=== PATIENT | female | born 2000 | race Two or more races ===

== ENCOUNTER 2020-02-08 04:48 | Inpatient (IN) | payer BC, MEDICAID, OTHER ==
[~2020-02-08] VITALS: Ht 149.9 cm; Wt 71.7 kg
[2020-02-08] MEDS ORDERED: ACETAMINOPHEN 325 MG TABLET. PO PRN ×3 (05:00→06:30)
[2020-02-08] MEDS ORDERED: IV RINGERS,LACTATED 1000ML 1,000 ML IV PRN ×2 (05:00→05:30)
[2020-02-08] MEDS ORDERED: MAG HYDROX/ALUMINUM HYD/SIMETH 30 ML ORAL.SUSP PO PRN ×2 (05:00→06:30)
[2020-02-08 05:18] LABS: BILIRUBIN,URINE NEGATIVE (NEG); CLARITY,URINE CLEAR; COLOR,URINE YELLOW; NITRITE,URINE NEGATIVE (NEG); PH,URINE 6.5 (<5.0-8.0); PROTEIN,URINE NEGATIVE (NEG-TRACE); UROBILINOGEN,URINE 0.2 mg/dL (0.2 mg/dL)
[2020-02-08 05:23] LABS: BACTERIA,URINE MANY /HPF (0-FEW); BARBITURATES NEG (NEG); BENZODIAZEPINES NEG (NEG); CANNABINOIDS NEG (NEG); COCAINE NEG (NEG); METHADONE NEG (NEG); OPIATES NEG (NEG); PHENCYCLIDINE NEG (NEG); RBC,URINE 0 /HPF (0-2); SQUAMOUS EPITHELIAL CELL,UR MANY /LPF
[2020-02-08] MEDS ORDERED: 0.9 % SODIUM CHLORIDE 10 ML DISP.SYRIN. IV PRN ×2 (05:30→06:30)
[2020-02-08] MEDS ORDERED: BUTORPHANOL 2 MG/ML VIAL. IVP PRN (05:30)
[2020-02-08] MEDS ORDERED: IBUPROFEN 400 MG TABLET. PO PRN (05:30)
[2020-02-08] MEDS ORDERED: LIDOCAINE 1% PF 30 ML VIAL. INJ PRN (05:30)
[2020-02-08] MEDS ORDERED: fentaNYL PF VIAL 100 MCG/2 ML VIAL IVP PRN (05:30)
[2020-02-08] MEDS ORDERED: ONDANSETRON PF 4 MG/2 ML VIAL. IVP PRN (05:30)
[2020-02-08] MEDS ORDERED: TERBUTALINE 1 MG/ML VIAL. SQ PRN (05:30)
[2020-02-08] MEDS ORDERED: OXYTOCIN 30 UNIT/500 ML PREMIX 500 ML IV PRN ×3 (05:30→06:30)
[2020-02-08 05:33] LABS: AMPHETAMINE/METHAMPHETAMINE NEG (NEG)
[2020-02-08] MEDS ORDERED: OXYTOCIN PREMIX 30 UNIT/500 ML NS BAG. IV ONE (06:00)
[2020-02-08 06:02] VITALS: BP 111/77
[2020-02-08 06:13] LABS: BASO # 0.1 x10^3/uL (0.0-0.2); BASO % 1 % (0-3); EOS # 0.1 x10^3/uL (0.0-0.7); EOS % 1 % (0-3); HEMATOCRIT 36.5 % (36.0-47.0); HEMOGLOBIN 12.1 g/dL (12.0-15.5); LYMPH # 3.7 x10^3/uL (1.0-4.8); LYMPH % 32 % (24-48); MEAN CORPUSCULAR HEMOGLOBIN 30 pg (25-35); MEAN CORPUSCULAR HGB CONC 33 g/dL (31-37); MEAN CORPUSCULAR VOLUME 92 fL (79-100); MONO # 0.7 x10^3/uL (0.0-1.1); MONO % 6 % (0-9); NEUT # 6.9 x10^3/uL (1.8-7.7); NEUT % 60 % (31-73); PLATELET COUNT 250 x10^3/uL (140-400); RED BLOOD COUNT 3.99 x10^6/uL (3.50-5.40); RED CELL DISTRIBUTION WIDTH 16.3 % (11.5-14.5); WHITE BLOOD COUNT 11.3 x10^3/uL (4.0-11.0)
[2020-02-08] MEDS ORDERED: PHENYLEPH/MINERAL OIL/PETROLAT RECTAL OINTMENT TUBE. RC PRN (06:30)
[2020-02-08] MEDS ORDERED: HYDROCORTISONE 1% TOPICAL OINTMENT 30GM TUBE. TP PRN (06:30)
[2020-02-08] MEDS ORDERED: MAGNESIUM HYDROXIDE 2,400 MG/30 ML ORAL.SUSP. PO PRN (06:30)
[2020-02-08] MEDS ORDERED: ZOLPIDEM 5 MG TABLET. PO PRN (06:30)
[2020-02-08] MEDS ORDERED: oxyCODONE/APAP 5/325 1 TAB TABLET PO PRN (06:30)
[2020-02-08] MEDS ORDERED: diphenhydrAMINE HCL 25 MG CAPSULE PO PRN (06:30)
[2020-02-08] MEDS ORDERED: BENZOCAINE 20% TOPICAL AEROSOL SPRAY 57GM CAN. TP PRN (06:30)
[2020-02-08] MEDS ORDERED: MMR per PROTOCOL. MC PRN (06:30)
[2020-02-08] MEDS ORDERED: SIMETHICONE 80 MG TAB.CHEW PO PRN (06:30)
[2020-02-08] MEDS ORDERED: TDaP (Adacel) per PROTOCOL. MC PRN (06:30)
[2020-02-08] MEDS ORDERED: DOCUSATE SODIUM 100 MG CAPSULE. PO PRN (06:30)
--- NOTE | 2020-02-08 06:56 | PDOC ---
VAGINAL DELIVERY DATE DATE: 02/08/20 TIME: 06:56 TIME The pt was placed in prophylactic [place] when pushing was initiated. The pts pushing was not well controlled. She at time would be lifting her bottom off the bed and scream with . The pt was moving so much that she pulled her IV out. Once the head was delivered the pt was not giving much maternal effort. Shortly after the head was delivered. After the delivery of the head the shoulders did not delivery. Suprapubic pressure was able to reduce the shoulder dystocia. Patient delivered a viable male infant over intact perineum at 0620. Wt 6lb 10oz. Apgars 8/9. Placenta delivered spontaneously, intact with 3VC. No lacerations noted. Good hemostasis noted. 20U of Pitocin given with IVFs. EBL 200cc. Cord ABG/VBG pending. WEIGHT Weight [ ] KAMALA BARBA MD Feb 08, 2020 06:56
--- NOTE | 2020-02-08 06:56 | PDOC1 ---
ELECTRICIAN UNDERGROUND H&P Date of Admission: Date of Admission: Feb 08, 2020 at 04:48 History of Present Illness: EDC: 03/08/20 LMP: 05/21/19 HPI: 19y @ 35.6 by 3rd trimester u/s presents to L&D with ctxs. The pt states that the cramping began around 3 am and within an hour the ctxs became more intense. She has been seen at since December. This is when her EDC was changed from 02/25/20 to 03/08/20. Prior to she was receiving care in [place]. PMH: Denies PSH: Denies Meds: PNV All: NKDA OBHx: TSVD x 1 SH: no tob, no EtOH FH: noncontributory Allergies: Coded Allergies: No Known Drug Allergies (Unverified , 02/08/20) Physical Exam: Vital Signs: Vital Signs Date Time Temp Pulse Resp B/P (MAP) Pulse Ox O2 Delivery O2 Flow Rate FiO2 02/08/20 06:02 97.7 130 20 111/77 (88) 95 Room Air 97.7 PE: GENERAL: No apparent distress. Alert and oriented. HEENT: Head normocephalic, atraumatic. NECK: Supple LUNGS: Clear to auscultation. HEART: RRR, S1, S2 present, pulses intact ABDOMEN: Soft, positive bowel sounds. EXTREMITIES: No cyanosis or edema. NEUROLOGIC: Normal speech, normal tone PSYCHIATRIC: Normal affect, normal mood. SKIN: No ulceration. FHT: 120s +acels/mild variable decels with ctxs/mLTV [place]: 2-3 min SVE: 8/C/0 Labs: Laboratory Tests Test 02/08/20 05:00 02/08/20 05:30 Urine Collection Type Unknown Urine Color Yellow Urine Clarity Clear Urine pH 6.5 (<5.0-8.0) Urine Specific [place] 1.015 (1.000-1.030) Urine Protein Negative mg/dL (NEG-TRACE) Urine Glucose (UA) Negative mg/dL (NEG) Urine Ketones (Stick) Negative mg/dL (NEG) Urine Blood Negative (NEG) Urine Nitrite Negative (NEG) Urine Bilirubin Negative (NEG) Urine Urobilinogen Dipstick 0.2 mg/dL (0.2 mg/dL) Urine Leukocyte Esterase Negative (NEG) Urine RBC 0 /HPF (0-2) Urine WBC 1-4 /HPF (0-4) Urine Squamous Epithelial Cells Many /LPF Urine Bacteria Many /HPF (0-FEW) Urine Mucus Marked /LPF Urine Opiates Screen Neg (NEG) Urine Methadone Screen Neg (NEG) Urine Barbiturates Neg (NEG) Urine Phencyclidine Screen Neg (NEG) Urine Amphetamine/Methamphetamine Neg (NEG) Urine Benzodiazepines Screen Neg (NEG) Urine Cocaine Screen Neg (NEG) Urine Cannabinoids Screen Neg (NEG) Urine Ethyl Alcohol Neg (NEG) White Blood Count 11.3 x10^3/uL (4.0-11.0) H Red Blood Count 3.99 x10^6/uL (3.50-5.40) Hemoglobin 12.1 g/dL (12.0-15.5) Hematocrit 36.5 % (36.0-47.0) Mean Corpuscular Volume 92 fL (79-100) Mean Corpuscular Hemoglobin 30 pg (25-35) Mean Corpuscular Hemoglobin Concent 33 g/dL (31-37) Red Cell Distribution Width 16.3 % (11.5-14.5) H Platelet Count 250 x10^3/uL (140-400) Neutrophils (%) (Auto) 60 % (31-73) Lymphocytes (%) (Auto) 32 % (24-48) Monocytes (%) (Auto) 6 % (0-9) Eosinophils (%) (Auto) 1 % (0-3) Basophils (%) (Auto) 1 % (0-3) Neutrophils # (Auto) 6.9 x10^3/uL (1.8-7.7) Lymphocytes # (Auto) 3.7 x10^3/uL (1.0-4.8) Monocytes # (Auto) 0.7 x10^3/uL (0.0-1.1) Eosinophils # (Auto) 0.1 x10^3/uL (0.0-0.7) Basophils # (Auto) 0.1 x10^3/uL (0.0-0.2) Laboratory Tests 02/08/20 05:30 Laboratory Tests 02/08/20 05:30 Assessment & Plan: A/P 19y @ 35.6 by 3rd trimester u/s 1.) Belarusian speaking 2.) labor questionable if pt actually term and only thought to be by late u/s, since greater 34wks will expectantly manage 3.) Will request records from [facility] 4.) A few elevated BP around delivery will monitor for trend 5.) Fetus cat I FHT, mec noted at time of SROM just prior to delivery 6.) GBS unk , delivered prior initiation of PCN KAMALA BARBA MD Feb 08, 2020 06:56
[2020-02-08] MEDS ORDERED: PRENATAL MULTIVITAMIN TABLET. PO SCH (09:00)
[2020-02-08 09:50] VITALS: BP 113/57
[2020-02-08 10:55] VITALS: BP 126/77
[2020-02-08 16:00] VITALS: BP 118/79
[2020-02-08] MEDS: IBUPROFEN 400 MG TABLET. PO PRN (17:02)
[2020-02-08 19:58] VITALS: BP 112/61
[2020-02-09 05:25] VITALS: BP 117/76
--- NOTE | 2020-02-09 06:00 | NUR ---
Patient passed a slightly larger than a golf ball sized clot. Uterus is firm with scant bleeding.
[2020-02-09] MEDS ORDERED: FERROUS SULFATE 325 MG TABLET. PO SCH (08:00)
[2020-02-09 08:17] LABS: HEMATOCRIT 32.3 % (36.0-47.0); HEMOGLOBIN 10.9 g/dL (12.0-15.5)
--- NOTE | 2020-02-09 09:34 | PDOC ---
DISTRICT SALES LEADER PROGRESS NOTE Subjective: Pt with good pain control. Mariusz PO. Voiding. Minimal lochia. Objective: Vital Signs: Vital Signs Date Time Temp Pulse Resp B/P (MAP) Pulse Ox O2 Delivery O2 Flow Rate FiO2 02/08/20 09:50 98.2 90 18 113/57 (75) 99 98.2 02/08/20 16:00 Room Air Vital Signs Date Time Temp Pulse Resp B/P (MAP) Pulse Ox O2 Delivery O2 Flow Rate FiO2 02/09/20 05:25 97.6 80 15 117/76 (90) 99 Room Air 97.6 Labs: Laboratory Tests Test 02/08/20 14:45 02/09/20 08:05 Hepatitis B Surface Antigen Nonreactive (Nonreactive) Hepatitis C IgG Antibody Nonreactive (Nonreactive) HIV (1&2) Antibody Screen Nonreactive (Nonreactive) Hemoglobin 10.9 g/dL (12.0-15.5) L Hematocrit 32.3 % (36.0-47.0) L Mean Corpuscular Hemoglobin Concent 34 g/dL (31-37) Laboratory Tests 02/09/20 08:05 Laboratory Tests 02/09/20 08:05 Physical Exam: GENERAL: No apparent distress. Alert and oriented. HEENT: Head normocephalic, atraumatic. NECK: Supple LUNGS: Clear to auscultation. HEART: RRR, S1, S2 present, pulses intact ABDOMEN: Soft, positive bowel sounds. EXTREMITIES: No cyanosis or edema. NEUROLOGIC: Normal speech, normal tone PSYCHIATRIC: Normal affect, normal mood. SKIN: No ulceration. FFNT below umb no C/C/E Assessment & Plan: A/P 19y s/p (at 35.6) 1.) Montenegrin speaking 2.) PP doing well 3.) Since records not recived from [facility], drop in labs obtained, wnl 4.) A few elevated BP around delivery all nml since 5.) Cont PP care KAMALA BARBA MD Feb 09, 2020 09:34
[2020-02-09 10:40] VITALS: BP 111/58
[2020-02-09] MEDS: IBUPROFEN 400 MG TABLET. PO PRN (17:34)
[2020-02-09 17:45] VITALS: BP 111/58
[2020-02-09 23:06] VITALS: BP 109/60
[2020-02-10 05:23] VITALS: BP 110/62
--- NOTE | 2020-02-10 08:31 | PDOC ---
OBIEE REPORT DEVELOPER PROGRESS NOTE Subjective: Pt with good pain control. Mariusz PO. Voiding. Minimal lochia Objective: Vital Signs: Vital Signs Date Time Temp Pulse Resp B/P (MAP) Pulse Ox O2 Delivery O2 Flow Rate FiO2 02/09/20 10:40 97.9 66 18 111/58 (75) 99 97.9 02/09/20 17:45 Room Air Vital Signs Date Time Temp Pulse Resp B/P (MAP) Pulse Ox O2 Delivery O2 Flow Rate FiO2 02/10/20 05:23 97.5 66 110/62 (78) 98 97.5 02/10/20 00:01 18 Room Air Physical Exam: GENERAL: No apparent distress. Alert and oriented. HEENT: Head normocephalic, atraumatic. NECK: Supple LUNGS: Clear to auscultation. HEART: RRR, S1, S2 present, pulses intact ABDOMEN: Soft, positive bowel sounds. EXTREMITIES: No cyanosis or edema. NEUROLOGIC: Normal speech, normal tone PSYCHIATRIC: Normal affect, normal mood. SKIN: No ulceration. FFNT below umb no C/C/E Assessment & Plan: A/P 19y PPD #2 s/p (at 35.6) 1.) Divehi speaking 2.) PP doing well 3.) Since records not received from [facility], drop in labs obtained, wnl 4.) A few elevated BP around delivery all nml since 5.) Hgb 12.1 -> 10.9 6.) Cont PP care KAMALA BARBA MD Feb 10, 2020 08:31
[2020-02-10] MEDS ORDERED: IBUP-1060 PO (08:35)
[2020-02-10] MEDS ORDERED: DOCU-109 PO (08:35)
[2020-02-10 12:15] VITALS: BP 107/68
--- NOTE | 2020-02-10 17:13 | DS ---
DATE OF DISCHARGE: 02/10/2020 ADMISSION DIAGNOSES: 1. Intrauterine at 35 weeks and 6 days by third trimester ultrasound. 2. labor 3. Group B Streptococcus unknown. DISCHARGE DIAGNOSES: 1. Intrauterine at 35 weeks and 6 days by third trimester ultrasound. 2. labor 3. Group B Streptococcus unknown. PROCEDURE: Spontaneous vaginal delivery. BRIEF HOSPITAL COURSE: The patient is a 19-year-old 2, para 1-0-0-1, who presented to Labor and Delivery at 35 weeks and 6 days by third trimester ultrasound with contractions. The patient had received most of her care at , but had only started in December. Prior to that, the patient was receiving her care in [place]. When she was seen in , her EDC was changed from 02/25/2020 to 03/08/2020 based on ultrasound performed there per the patient. The patient progressed without issue and ultimately delivered by vaginal delivery, see delivery note for detail. By day #2, the patient was meeting all discharge criteria and was subsequently discharged home. Of note, around delivery, the patient had a few mild range blood pressures, but all blood pressures prior and after were in the normal range. The patient's hemoglobin on admission was 12.1 and had dropped to 10.9 after delivery. DISCHARGE INSTRUCTIONS: The patient was told not to lift anything greater than 20 pounds, have pelvic rest for 6 weeks. The patient is to call if she had fevers, chills, nausea, vomiting, abdominal pain or any additional questions or concerns. FOLLOWUP APPOINTMENT: The patient is to follow up in our office in 6 weeks' time for a appointment. DISCHARGE MEDICATIONS: The patient was given a prescription for Motrin 800 mg 30 pills and Colace 100 mg 30 pills. KAMALA BARBA MD DR: HARPER/brian JOB#: [id number] / [id number]
--- NOTE | 2020-02-13 18:06 | PATHOLOGY ---
[facility] Accession Number: [id number] . 01 Material submitted: . placenta - PLACENTA AND CORD . 01 Clinical history: . delivery, meconium fluid EDC: 03/08/2020 2 para 1 8, 9 GA 35.6 weeks . 02 Diagnosis: 347 gram placenta (below 25th percentile) of an estimated 35-36 weeks gestation with attached membranes and umbilical cord and detached segment of umbilical cord: - Meconium staining of placental membranes. - Chronic lymphocytic deciduitis. - Retroplacental/retromembranous hematoma, compatible with chronic ongoing marginal separation. - Acute subchorioamnionitis. - Acute inflammation involving chorionic plate vessels. - stem vessel mural thrombus with associated avascular/paucicellular terminal villi, consistent with vascular malperfusion. - Chronic lymphohistiocytic villitis. ([facility] 02/13/2020) [facility] 02/13/2020 1650 Local . 02 Comment: The case is also examined by Dr. Louise, who has a specialty interest in placental pathology. She concurs with the diagnosis. ([facility] 02/13/2020) . 02 Electronically signed: . Kyle Junior MD, Pathologist NPI- [id number] . 01 Gross description: . The specimen is received in formalin labeled "Lili Xavier, placenta and cord" and consists of a circular lloyd placenta measuring 13.5 x 13.4 x 3.0 cm and weighing 347 g after removal of membranes and umbilical cord. The membranes are green donnelly and opaque with a small amount of retro-membranous clot. The surface is green-blue and well vascularized with an eccentrically inserted 3 vessel umbilical cord, 3.5 cm from edge. The cord measures 13.8 cm in length and ranging from 0.9-1.9 cm in diameter. A single false knot is present. Received separately is a clamped segment of umbilical cord measuring 25.0 cm in length and 1.1 cm in diameter showing reduced twists. The maternal surface shows complete and intact cotyledons with focal clot around the disc periphery. Sectioning reveals a maroon-red and spongy parenchyma with 3 scattered orange possible lesions measuring up to 1.1 cm (less than 5% of the parenchyma). Picker Operator sections are submitted as follows: . A1: Surface vessels A2: Umbilical cord and membrane rolls A3: Disc periphery with clot A4: Full-thickness section with clot and lesion A5: Full-thickness section (SDY; 02/09/2020) SYU/SYU 02/09/2020 1444 Local . 02 Pathologist provided ICD-10: O41.1230, O43.893, O77.0, Z37.0, Z3A.35 . 02 CPT . 910009 Specimen Comment: A courtesy copy of this report has been sent to [phone] Specimen Comment: Report sent to Performed at: 01 [facility] [address], [place] [id number] MD Boyd Armstrong MD Phone: [phone] Performed at: 02 [facility] [place] [address] [place], [place] [id number] MD Kyle Junior MD Phone: [phone]
== END 2020-02-10 13:20 | disposition home or self-care (01) | DRG 805 ==
LOC: 3 SO LND 04:48 → OBSVTOIN 04:48 → 3 NORTH 09:45
PROVIDERS: ADMIT Obstetrics & Gynecology; ATTEND Obstetrics & Gynecology
PROC: 10E0XZZ Delivery of Products of Conception, External Approach (ICD-10-PCS; principal; 2020-02-08)
DX: O66.0 Obstructed labor due to shoulder dystocia (principal); O60.14X0 Preterm labor third trimester with preterm delivery third trimester, not applicable or unspecified; Z37.0 Single live birth; R03.0 Elevated blood-pressure reading, without diagnosis of hypertension; O75.89 Other specified complications of labor and delivery; O76 Abnormality in fetal heart rate and rhythm complicating labor and delivery; Z20.828 Contact with and (suspected) exposure to other viral communicable diseases; Z3A.35 35 weeks gestation of pregnancy
CPT/HCPCS: 36415; 80307; 81001; 85014; 85018; 85025; 86592; 86703; 86706; 86762; 86803; 86850; 86900; 86901; 87086; 87340; 88307; J2590; G0378; U0003-CS